=== PATIENT | male | born 1950 | race Caucasian/White ===

== ENCOUNTER 2019-11-08 00:23 | Day surgery (SDC) | payer OTHER, SELFPAY ==
[2019-11-08 00:42] VITALS: BP 166/97; PULSE 80; RESP 16; TEMP 36.9; O2SAT 97
--- NOTE | 2019-11-08 00:43 | ED.GENADUL_ITS ---
Discharge Plan Disposition Patient Disposition: [facility] INPATIENT Condition: Stable Discharge Details Chief Complaint: ThroatFB Clinical Impression: Esophageal foreign body Attending Provider: Briana Bustillos Primary Care Provider: Elizabeth,Local ED Provider: Pedro Todd Medical Decision Making 69 yo male comes in after he was eating dinner, swallowed shrimp and felt a piece get stuck in lower esophagus similar to prior episodes requiring endoscopy last being several years ago per pt. Denies abdominal pain, chest pressure or dyspnea. He went to 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 Bustillos and decided to transfer here after Dr. Bustillos discussed with me. ARrives HD stable here no stridor speaking in full sentences. Will discuss with Dr. Tressa Bustillos coming in and plan for endoscopy. Pt updated Differential Diagnosis Differential Diagnosis: food impaction, gerd HPI General Mode of arrival: ambulatory . Date/Time Provider Initiated Documentation: 11/08/19 00:43 . Limitations to Documentation: no limitations . Information obtained by: patient . History of Present Illness 69 year old M presents to the emergency department with the chief complaint of feels shrimp stuck in throat, described as moderate, and it has been constant. No relieving factors improve symptom(s), No exacerbating factors reported . Patient did receive the following treatments prior to arrival, none Related Data Home Medications Medication Instructions Recorded Confirmed multivitamin 1 tab PO DAILY 11/08/19 11/08/19 Allergies Allergy/AdvReac Type Severity Reaction Status Date / Time No Known Allergies Allergy Unverified 11/08/19 00:46 Review of Systems All systems reviewed & are unremarkable except as noted in HPI and below Constitutional Constitutional: Denies chills, Denies fever(s) and Denies weakness Cardiovascular Cardiovascular: Denies chest pain and Denies dyspnea Respiratory Respiratory: Denies cough and Denies dyspnea Gastrointestinal Gastrointestinal: Denies abdominal pain, Denies nausea and Denies vomiting Musculoskeletal Musculoskeletal: Denies joint swelling Neurologic Neurologic: Denies weakness [facility] Medical History (Updated 11/08/19 @ 01:59 by Pedro Todd MD) Cataract (Chronic) Detached retina, bilateral (Acute) Esophageal foreign body (Acute) Social History Smoking/Tobacco Use Status: Never Alcohol Intake: current Alcohol Intake frequency: a few times a month Alcohol type: beer Drug use: Never Substance use type: does not use Do you feel safe at home: Yes Do you feel safe in your relationship?: Yes Exam Const General: no acute distress Orientation: alert HENMT Head: normal to inspection Ears: external ears normal General nose exam: external nose normal Mouth: moist mucous membranes Eyes General: appearance normal, both eyes and all related structures Neck Neck: normal visual inspection Resp Effort & Inspection: normal respiratory effort and able to speak in complete sentences Cardio Rate: regular rate GI Palpation: soft Skin General skin exam: no rashes or lesions noted Neuro General: patient alert and patient oriented x3 Extrem General: normal to inspection Psych Mental Status: mental status grossly normal
--- NOTE | 2019-11-08 01:38 | HPE_ITS ---
Date of service: 11/08/19 Time of Service: 01:38 Assessment and Plan Assessment and plan (1) Esophageal foreign body: Status: Acute Assessment and plan: Informed consent is obtained for the procedural ( explained in simple layman's terms that the pt and/or family could understand) explaining risks vs benefits and alternatives to the procedure and consequences if we do not do the procedure and need/rational for the procedure. Risks include but are not limited to: bleeding, infection, perforation of esophagus, stomach, colon, small intestines, bronchus or trachea, or PTX. This would necessitate emergency surgery to repair the damage w/ possible ostomy; and other associated complications w/ the required surgery. Also complications of anesthesia including aspiration, [place]/CVA/. pt not been tested for covid. no fever/chills/cough/loss of smell. History of Present Illness Consults Consult date: 11/08/19 Narrative: pt was eating shrimp at 12:30. cannot swallow water. Has hx of reflux. takes ppi on fri and sat. has bad H/I and takes tums. Has had food impaction in the past. no problems w/ anesthesia. prior EGD and foreign body removal. no XRT or surgery on his neck. no blood thinners. no dm non smoker. Review of Systems Narrative: can't swallow secretions. All systems reviewed & are unremarkable except as noted in HPI and below Constitutional Constitutional: Reports as per HPI, Reports system reviewed and no additional complaints, except as documented, Denies anorexia, Denies chills, Denies difficulty sleeping, Denies fatigue, Denies headache(s), Denies lethargy, Denies malaise, Denies poor appetite, Denies weakness, Denies weight gain and Denies weight loss Eyes Eyes: Reports as per HPI, Reports system reviewed and no additional complaints, except as documented and Denies change in vision ENT Ears, Nose, Mouth, and Throat: Reports system reviewed and no additional complaints, except as documented, Reports as per HPI, Denies change in voice, Denies dental pain, Denies dysphagia, Denies dizziness, Denies facial pain, Denies headache(s) and Denies odynophagia Cardiovascular Cardiovascular: Reports as per HPI, Reports system reviewed and no additional complaints, except as documented, Denies chest pain, Denies chest pain with activity, Denies syncope, Denies leg edema and Denies dyspnea Respiratory Respiratory: Reports as per HPI, Reports system reviewed and no additional complaints, except as documented, Denies chest congestion, Denies cough, Denies pain with cough and Denies dyspnea Gastrointestinal Gastrointestinal: Reports as per HPI, Reports system reviewed and no additional complaints, except as documented, Denies abdominal pain, Denies bloating, Denies change in bowel habits, Denies change in stool character, Denies constipation, Denies cramping, Denies dysphagia, Denies early satiety, Denies heartburn, Denies diarrhea, Denies nausea, Denies odynophagia and Denies vomiting Genitourinary Genitourinary: Reports system reviewed and no additional complaints, except as documented Musculoskeletal Musculoskeletal: Reports system reviewed and no additional complaints, except as documented, Reports as per HPI, Denies abnormal gait, Denies arthralgias and Denies muscle weakness Integumentary/Breasts Skin/Breast: Reports system reviewed and no additional complaints, except as documented, Reports as per HPI, Denies changing lesions, Denies new lesions and Denies jaundice Neurologic Neurologic: Reports system reviewed and no additional complaints, except as documented, Reports as per HPI, Denies abnormal speech, Denies abnormal gait, Denies dizziness, Denies syncope, Denies headache(s), Denies memory loss and Denies weakness Psychiatric Psychiatric: Reports system reviewed and no additional complaints, except as documented, Reports as per HPI, Denies change in appetite and Denies memory loss Endocrine Endocrine: Denies fatigue, Denies polydipsia and Denies polyuria Hematologic/Lymphatic Hematologic/Lymphatic: Reports system reviewed and no additional complaints, except as documented, Denies easy bleeding and Denies easy bruising Allergic/Immunologic Allergic/Immunologic: Denies system reviewed and no additional complaints, except as documented, Reports as per HPI and Denies urticaria PFSH Medical History Cataract (Chronic) Detached retina, bilateral (Acute) Social History Smoking/Tobacco Use Status: Never Alcohol Intake: current Alcohol Intake frequency: a few times a month Alcohol type: beer Drug use: Never Substance use type: does not use Do you feel safe at home: Yes Do you feel safe in your relationship?: Yes Meds Home Medications and Allergies Home Medications Medication Instructions Recorded Confirmed Type multivitamin 1 tab PO DAILY 11/08/19 11/08/19 History Allergies Allergy/AdvReac Type Severity Reaction Status Date / Time No Known Allergies Allergy Unverified 11/08/19 00:46 Results Last Vital Signs Temp 36.9 C 11/08/19 00:42 Pulse 80 11/08/19 00:42 Resp 16 11/08/19 00:42 BP 166/97 H 11/08/19 00:42 Pulse Ox 97 11/08/19 00:42 COVID-19 Screening Have you, or has anyone in your household, traveled outside of [place] in the last 14 days?: NO Had IN PERSON contact w/suspected or confirmed C-19 person: No
[2019-11-08] MEDS: Lactated Ringers 1,000 ML 30 ML IV (02:05)
--- NOTE | 2019-11-08 02:14 | ENDO_ITS ---
Date of service: 11/08/19 Time of Service: 02:14 Endoscopy Report DATE OF PROCEDURE: 11/08/19 PRE-OP DIAGNOSIS: esophageal FB POST-OP DIAGNOSIS: other (esophagitis/gastritis) PROCEDURE: EGD and foreign body removal SURGEON: Briana Bustillos ANESTHESIA: GETA ESTIMATED BLOOD LOSS: 0 PATHOLOGY: none sent COMPLICATIONS: None DISPOSITION: floor PROCEDURE DESCRIPTION: After informed consent was obtained the patient was take to the procedure room and placed in a supine position. Monitors were applied and a time out was done. The patients name, date of , procedure type, allergies to medications and metal in their body was reviewed. A bite block was placed and the patient was sedated. Once sedated and comfortable the gastroscope was advanced through the oropharynx which was grossly normal into the esophagus. The proximal and mid-esophagus were. In the distal esophagus there was fluid adn food bolus. This was washed down into the stomach. fluid removed from stomach. The scope was advanced into the stomach and through the pylorus into the 3rd portion of the duodenum-nl. The duodenum was noted to be nl. NO Biopsies were done. The scope was retracted back into the stomach and biopsies were not done to rule out H. pylori. There were no ulcers. The scope was retroflexed. The cardia and fundus were noted to be normal. There no a hiatal hernia noted. The Z line was regular. He does have some mild esophagitis. The scope was removed and the patient was woken up and taken back to [facility] in stable condition. Follow up: PCP in 1-2 wks need to take nexium every day
[2019-11-08 02:17] VITALS: BP 143/73; PULSE 78; RESP 16; O2SAT 99
--- NOTE | 2019-11-08 02:19 | W.PM.DS.N ---
Date of service: 11/08/19 Time of Service: 02:19 DS: Diagnosis Discharge Diagnosis (1) Esophageal foreign body: Status: Acute Discharge Plan Disposition Patient Disposition: HOME Condition: Stable Discharge Details Chief Complaint: ThroatFB Clinical Impression: Esophageal foreign body Reason For Visit: esophageal foreign body Attending Provider: Briana Bustillos Primary Care Provider: Elizabeth,Local ED Provider: Pedro Todd Home Meds and New Rx's Prescriptions: New esomeprazole magnesium [Nexium] 40 mg capsule,delayed release(DR/EC) 40 mg PO DAILY Qty: 30 RF: 12 Continued multivitamin Tablet 1 tab PO DAILY RF: 0 Discharge Instructions Additional Instructions: Findings: esophageal foreign body Reflux Follow up:F/u w/ PCP in 1-2 wks Please call if you develop: fevers >100.5 Nausea or Vomiting Abdominal pain that is not transient cough feel short of breathe DAY SURGERY UNIT POST COLONOSCOPY INSTRUCTIONS 1. Because there will be medication in your system for the next 24 hours, you may feel a little sleepy. Your coordination will be affected. Therefore: a. Do not drive or operate dangerous equipment for 24 hours. b. Do not drink alcohol beverages for 24 hours (not even beer). c. Plan to go home and rest for the day. 2. Generally there are no restrictions on your activity after a day or so has gone by, but you may feel a bit fatigued for a few days. 3 After you arrive home you may have a light meal and return to a normal diet as you can tolerate it without feeling sick to your stomach. 4. After surgery, you may feel pain or discomfort. This should be only transient, but if it persists please contact your doctor. 5. If there are any questions regarding the findings of your procedure, please feel free to contact your doctor. 6. If you are unable to contact your doctor with a problem, contact the hospital at [phone]. 7. Continue all your regular medications unless directed otherwise. I understand the above instructions and have no questions. Signature of Patient or Responsible Adult Escort Date/Time Name of Responsible Adult Escort Signature of Nurse Date/Time Activity:: no strenuous activity x 24 hrs Diet:: liquid diet x 24 hrs DS: Summary Status at Discharge Functional status at discharge: independent ambulation Overall status at discharge: patient is back to baseline Mental Status: mental status grossly normal Speech and Movement: speech and movement normal Mood: congruent mood Affect: normal affect Exam Psych Mental Status: mental status grossly normal Speech and Movement: speech and movement normal Mood: congruent mood Affect: normal affect DS: Data Vitals/I&O Vitals and I&O: Vital Signs Temperature 36.9 C 11/08/19 00:42 Temperature Source Oral 11/08/19 00:42 Pulse 80 11/08/19 00:42 Respiratory Rate 16 11/08/19 00:42 Respiratory Effort Non-Labored 11/08/19 00:47 Respiratory Pattern Normal 11/08/19 00:47 Blood Pressure 166/97 H 11/08/19 00:42 Pulse Oximetry 97 11/08/19 00:42 Pain Level 0 11/08/19 01:49 Intake & Output 11/07/19 11/07/19 11/08/19 11:59 23:59 11:59 Intake Total 200 / 200 Balance 200 / 200 Weight 86.183 kg Intake: IV 200 / 200 PFSH Medical History (Updated 11/08/19 @ 02:20 by Briana Bustillos DO) Cataract (Chronic) Chronic GERD (Acute) Detached retina, bilateral (Acute) Esophageal foreign body (Acute) x3 for foreign body History of gastroscopy (Acute) Social History Smoking/Tobacco Use Status: Never Alcohol Intake: current Alcohol Intake frequency: a few times a month Alcohol type: beer Drug use: Never Substance use type: does not use Do you feel safe at home: Yes Do you feel safe in your relationship?: Yes
[2019-11-08 02:22] VITALS: BP 124/68; PULSE 78; RESP 16; O2SAT 97
[2019-11-08 02:27] VITALS: BP 124/82; PULSE 75; RESP 16; TEMP 36; O2SAT 94
[2019-11-08 02:32] VITALS: BP 125/77; PULSE 78; RESP 16; TEMP 36; O2SAT 92
[2019-11-08 02:57] VITALS: BP 135/71; PULSE 73; RESP 17; TEMP 36.5; O2SAT 94
[2019-11-08] MEDS: Normal Saline Flush 10 ML SYR (03:31)
== END 2019-11-08 04:40 | disposition home or self-care (01) ==
LOC: ER 01:23 → SUR 01:45 → MS 11-09 10:55
PROVIDERS: Emergency Provider Emergency Medicine; Visit Provider Surgery
PROC: 0DJ68ZZ Inspection of Stomach, Via Natural or Artificial Opening Endoscopic (ICD-10-PCS; CPT 43235; principal; 2019-11-08 01:20)
DX: T18.128A Food in esophagus causing other injury, initial encounter (principal); K22.2 Esophageal obstruction; K21.9 Gastro-esophageal reflux disease without esophagitis
CPT/HCPCS: 43247; 99222; 99238; 99285; 99283; J2001; J2704